=== PATIENT | female | born 1995 | race African-American/Black ===

== ENCOUNTER 2021-08-21 04:35 | Emergency (ER) | payer BC ==
[~2021-08-21] VITALS: Ht 157.5 cm; Wt 113.6 kg
[2021-08-21 05:44] LABS: COLLECTION METHOD CLEAN CATCH
[2021-08-21 05:51] LABS: PH 5 (5-8); SQUAMOUS EPITHELIAL 0-2 /hpf; URINE APPEARANCE Hazy; URINE BACTERIA Rare /hpf; URINE BILIRUBIN Negative (NEGATIVE); URINE BLOOD 1+ (NEGATIVE); URINE COLOR Yellow; URINE GLUCOSE Negative (NEGATIVE); URINE KETONE Negative (NEGATIVE); URINE LEUKOCYTE ESTERASE Negative (NEGATIVE); URINE NITRATE Negative (NEGATIVE); URINE PROTEIN(semi-quant) Negative (NEGATIVE); URINE RBC 0-2 /hpf; URINE UROBILINOGEN Negative (NEGATIVE)
[2021-08-21] MEDS ORDERED: PEPCID 20MG TAB20 MG PO (05:59)
[2021-08-21] MEDS ORDERED: ZOFRAN ODT4 MG PO (05:59)
[2021-08-21 06:04] VITALS: BP 117/86; PULSE 87; TEMP 98.6
== END 2021-08-21 06:10 | disposition home or self-care (01) ==
LOC: COL.ER 04:35
PROVIDERS: Emergency Medicine
DX: R51.9 Headache, unspecified (principal); R53.81 Other malaise; Z20.822 Contact with and (suspected) exposure to COVID-19; Z32.02 Encounter for pregnancy test, result negative

== ENCOUNTER 2021-08-25 16:12 | Emergency (ER) | payer BC ==
[~2021-08-25] VITALS: Ht 157.5 cm; Wt 113.6 kg
[~2021-08-25 16:12] MED LIST: PEPCID 20MG TAB20 MG PO; ZOFRAN ODT4 MG PO
[2021-08-25 16:50] VITALS: BP 133/91; TEMP 98.2
[2021-08-25] MEDS ORDERED: NORCO 325 MG-51 TAB PO (17:17)
[2021-08-25] MEDS ORDERED: PEN-VEE K500 MG PO (17:17)
[2021-08-25 18:00] VITALS: PULSE 90
== END 2021-08-25 18:00 | disposition home or self-care (01) ==
LOC: COL.ER 16:12
DX: K04.7 Periapical abscess without sinus (principal); F17.290 Nicotine dependence, other tobacco product, uncomplicated

== ENCOUNTER 2021-08-28 09:15 | Emergency (ER) | payer BC ==
[~2021-08-28] VITALS: Ht 157.5 cm; Wt 113.6 kg
[~2021-08-28 09:15] MED LIST changes: +NORCO 325 MG-51 TAB PO; +PEN-VEE K500 MG PO
[2021-08-28 09:47] VITALS: TEMP 98.4
[2021-08-28] MEDS ORDERED: MOTRIN 800800 MG/TAB PO ×2 (11:04→11:12)
[2021-08-28 11:11] VITALS: BP 130/72; PULSE 81
== END 2021-08-28 11:10 | disposition home or self-care (01) ==
LOC: COL.ER 09:15
DX: K08.89 Other specified disorders of teeth and supporting structures (principal); F17.290 Nicotine dependence, other tobacco product, uncomplicated
CPT/HCPCS: J1885

== ENCOUNTER 2021-09-19 21:47 | Emergency (ER) | payer BC ==
[~2021-09-19] VITALS: Ht 157.5 cm; Wt 113.6 kg
[~2021-09-19 21:47] MED LIST changes: +MOTRIN 800800 MG/TAB PO
[2021-09-19 22:16] VITALS: TEMP 98.2
[2021-09-19] MEDS ORDERED: IBU800 M1 PO (23:20)
[2021-09-19 23:39] VITALS: BP 124/88; PULSE 76
== END 2021-09-19 23:39 | disposition home or self-care (01) ==
LOC: COL.ER 21:47
DX: K08.89 Other specified disorders of teeth and supporting structures (principal)
CPT/HCPCS: J1885

== ENCOUNTER 2021-12-02 04:31 | Emergency (ER) | payer SELFPAY ==
[~2021-12-02 04:31] MED LIST changes: +IBU800 M1 PO
[2021-12-02 04:38] VITALS: TEMP 98.1
[2021-12-02 05:42] VITALS: BP 149/92; PULSE 69
== END 2021-12-02 05:43 | disposition home or self-care (01) ==
LOC: COL.ER 04:31
DX: U07.1 COVID-19 (principal)